=== PATIENT | male | born 1985 | race Caucasian/White ===

== ENCOUNTER → 2025-02-23 12:19 | Outpatient (BNVA) | payer MEDICAID, SELFPAY | PROVIDERS: Family Provider Family Medicine; PCP Family Medicine; Visit Provider Internal Medicine | DX: R07.9 Chest pain, unspecified (principal) | CPT/HCPCS: 93005 ==

== ENCOUNTER 2025-04-03 11:15 | Outpatient (CLI) | payer MEDICAID, SELFPAY ==
--- NOTE | 2025-04-03 | ECG_ITS ---
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 Interpretive Statements Lung unchanged pre/post procedure; Intraprocedure shortess of breath; Symptoms resoled by discharge PROCEDURE: At the baseline, the patient's blood pressure was 140/84 with a heart rate of 71. The baseline electrocardiogram showed normal sinus rhythm with normal ST-Ts.. The patient exercised for 9 minutes and 37 seconds on a standard He protocol. Patient attained a maximum heart rate of 174 beats per minute(95% of the maximum predicted heart rate) with a blood pressure at the peak exercise of 146/106 mm Hg. The EKG at the peak exercise revealed some nonspecific ST-T change. Patient did not have any chest pain or any significant cardiac arrhythmias with the exercise During the recovery phase, there were no new changes. Blood pressure at the end of the recovery phase was 153/86 mm Hg with a heart rate of 105 per minute. CONCLUSION: 1. Nonspecific EKG changes with treadmill exercise 2. No exercise-induced chest pain or cardiac arrhythmia 3. Fair exercise tolerance, attained a maximum of 13.5 METs Electronically Signed On 04-05-2025 21:31:44 CDT by Keenan Hilton M.D. [email or web address]
[2025-04-03 12:25] VITALS: BMI 32.5
[2025-04-03 12:48] VITALS: BP 153/66; PULSE 105
--- NOTE | 2025-04-03 13:30 | USCV_ITS ---
Oni Whitmore Age: 39 Gender: M : 1985 Exam Date: 04/03/2025 13:23 Ordering Phys: Óscar Long M.D ([email or web address]) Technologist: Diaz Rodas [place] [facility] [place]: sob BP: 153 / 66 HR: 82 Rhythm: Sinus Technical Quality: Adequate MEASUREMENTS (Male / Female) Normal Values 2D ECHO LV Diastolic Diameter PLAX 3.4 cm 4.2 - 5.9 / 3.9 - 5.3 cm IVS Diastolic Thickness 1.2 cm 0.6 - 1.0 / 0.6 - 0.9 cm IVS Systolic Thickness 1.7 cm LVPW Diastolic Thickness 1.9 cm 0.6 - 1.0 / 0.6 - 0.9 cm LVPW Systolic Thickness 2.0 cm LVOT Diameter 2.1 cm LV Ejection Fraction 2D Teich 58.7 % LV Ejection Fraction MOD 4C 65.9 % LV Ejection Fraction MOD 2C 70.7 % LV Ejection Fraction 2C AL 72.0 % LA Diameter 3.0 cm RA Systolic Volume 4C AL 20.4 ml RA Systolic Volume 4C MOD 19.9 ml LA Sys Volume AL 20.8 cm cubed LA Sys Volume Index AL 10.4 cm cubed/m squared Aorta at Sinotubular Diameter 2.2 cm IVC Diameter 1.6 cm M-MODE LA Ao Ratio MM 1.0 AV Cusp Separation MM 1.9 cm DOPPLER AV Peak Velocity 102.0 cm/s LVOT Peak Velocity 81.0 cm/s AV Area Cont Eq vti 2.7 cm squared AV Area Cont Eq pk 2.8 cm squared MV Peak Velocity 84.0 cm/s MV Area PHT 4.9 cm squared Mitral E to A Ratio 1.2 TV Peak Velocity 212.7 cm/s TR Peak Velocity 243.0 cm/s TR Peak Gradient 23.6 mmHg TR Mean Velocity 181.0 cm/s TR Mean Gradient 14.4 mmHg TR Velocity Time Integral 50.8 cm PV Peak Velocity 92.3 cm/s RV Ejection Time 0.2 s FINDINGS Left Ventricle Left ventricle is normal size. LV systolic function is normal with EF of 55-60%. No regional wall motion abnormalities are seen. Right Ventricle Normal in size and function Right Atrium Normal in size Left Atrium Normal in size Mitral Valve Structurally normal mitral valve. Trace mitral regurgitation Aortic Valve Structurally normal aortic valve. No significant stenosis or regurgitation. Tricuspid Valve Insufficient TR jet to evaluate RVSP. Pulmonic Valve Trace pulmonic regurgitation Pericardium Normal Aorta Normal in size IVC Appears to be normal CONCLUSIONS LV systolic function is normal with EF of 55-60% Trace mitral regurgitation Trace pulmonic regurgitation No comparison studies are available. Óscar Long MD (Electronically Signed) Final Date: 12 April 2025 16:12 S
== END 2025-04-03 11:16 | disposition home or self-care (01) ==
PROVIDERS: PCP Nurse Practitioner; Visit Provider Internal Medicine
DX: R06.02 Shortness of breath (principal); R07.9 Chest pain, unspecified; R93.1 Abnormal findings on diagnostic imaging of heart and coronary circulation
CPT/HCPCS: 93017; 93306